=== PATIENT | female | born 1945 | race Caucasian/White ===

== ENCOUNTER 2017-03-20 02:39 | Observation (INO) | payer MEDICARE ==
[~2017-03-20] VITALS: Ht 160 cm; Wt 73.5 kg
[~2017-03-20 02:39] MED LIST: ACYC400T PO; AMLO2.5T PO; ASPI-1197 PO; BIOT10004 PO; CALC1CAP22 PO; CYAN100010 PO; ESOM40CA PO; FISH1CAP63 PO; FLUT16H NASAL; MULT-264 PO; SERT20OR6 PO; TRAM50TA4 PO
[2017-03-20 03:05] LABS: APPEARANCE,URINE Clear (CLEAR); BILIRUBIN,URINE Negative (NEGATIVE); COLOR,URINE Yellow (YELLOW); GLUCOSE, URINE (UA) Negative (NEGATIVE); KETONES,URINE Negative (NEGATIVE); LEUKOCYTE ESTERASE ,URINE Negative (NEGATIVE); NITRATE,URINE Negative (NEGATIVE); OCCULT BLOOD,URINE Small (NEGATIVE); PROTEIN,URINE Negative (NEGATIVE); UROBILINOGEN,URINE 0.2 mg/dL (0.2-1.0)
[2017-03-20 03:16] LABS: BASOPHILS % (AUTO) 0.3 % (0.0-5.0); EOSINOPHILS % (AUTO) 0.9 % (0.0-8.0); HEMATOCRIT 39.7 % (36-48); LYMPHOCYTES % (AUTO) 17.2 % (21.0-51.0); MEAN CORPUSCULAR HEMOGLOBIN 32.7 pg (27.0-33.0); MEAN CORPUSCULAR HGB CONC 35.1 g/dL (32.0-36.0); MEAN CORPUSCULAR VOLUME 93.1 fL (79-99); MONOCYTES % (AUTO) 6.6 % (3.0-13.0); NUCLEATED RED BLOOD CELLS 0.1 % (0.0-0.19); PLATELET COUNT (AUTO) 225 K/uL (130-400); RED BLOOD CELL COUNT(AUTO) 4.26 MIL/uL (4.00-5.50); RED CELL DISTRIBUTION WIDTH 13.4 % (11.0-15.5); WHITE BLOOD COUNT (AUTO) 6.7 K/uL (4.8-10.8)
[2017-03-20] MEDS ORDERED: SODIUM CHLORIDE 0.9% 1000ML 1,000 ML IV ONE ×2 (03:16→07:49)
[2017-03-20] MEDS ORDERED: ONDANSETRON HCL 4 MG/2 ML VIAL ONE ×2 (03:16→05:22)
[2017-03-20] MEDS ORDERED: HYDROMORPHONE 1 MG/1 ML AMP ONE (03:17)
[2017-03-20 03:18] LABS: BACTERIA,URINE None Seen /HPF (None Seen); WBC,URINE None Seen /HPF (0-1)
[2017-03-20 03:25] LABS: POTASSIUM 3.9 mmol/L (3.5-5.1)
[2017-03-20 03:26] LABS: INR 0.94 (0.85-1.15); PARTIAL THROMBOPLASTIN TIME 26.4 SEC (26.3-35.5); PROTHROMBIN TIME 9.9 SEC (9.6-11.6)
[2017-03-20 03:29] LABS: ALBUMIN 3.8 g/dL (3.5-5.0); BILIRUBIN,DIRECT 0.1 mg/dL (0.0-0.3); BILIRUBIN,TOTAL 0.2 mg/dL (0.2-1.0); TOTAL PROTEIN, SERUM 7.4 g/dL (6.0-8.3)
[2017-03-20] MEDS ORDERED: IOPAMIDOL-370 75 ML VIAL IV ONE (03:37)
[2017-03-20] MEDS ORDERED: CEFTRIAXONE SODIUM 1 GM ONE (05:22)
[2017-03-20] MEDS ORDERED: POTASSIUM CHLORIDE 10% ELIXIR 20 MEQ/15 ML UDCUP PO PRN (06:45)
[2017-03-20] MEDS ORDERED: POTASSIUM CHLORIDE 20 MEQ ERTAB PO PRN (06:45)
[2017-03-20] MEDS ORDERED: ONDANSETRON HCL 4 MG/2 ML VIAL IV PRN (06:45)
[2017-03-20] MEDS ORDERED: HYDRALAZINE HCL 20 MG/ML VIAL IV PRN (06:45)
[2017-03-20] MEDS: LEVOFLOXACIN 500 MG/D5W 100 ML 100 ML IV SCH (06:45)
[2017-03-20] MEDS ORDERED: SODIUM CHLORIDE 0.9% 1000ML 1,000 ML IV SCH (06:45)
[2017-03-20] MEDS ORDERED: POTASSIUM CHLORIDE 20MEQ/100ML 100 ML IV PRN (06:45)
[2017-03-20] MEDS: METRONIDAZOLE 500MG/100ML BAG 100 ML IV SCH ×3 (06:45→22:58)
[2017-03-20] MEDS ORDERED: LIDOCAINE HCL-MPF 1% 2ML VIAL IVP PRN (06:45)
[2017-03-20] MEDS ORDERED: MEPERIDINE-PF 25 MG/ML SYG ONE ×2 (07:27→10:58)
[2017-03-20] MEDS ORDERED: LEVOFLOXACIN 500 MG/D5W 100 ML 100 ML ONE (07:49)
[2017-03-20] MEDS ORDERED: METRONIDAZOLE 500MG/100ML BAG 100 ML ONE (07:49)
[2017-03-20] MEDS ORDERED: PANTOPRAZOLE SODIUM 40 MG TABLET.DR PO ONE (08:45)
[2017-03-20] MEDS ORDERED: PANTOPRAZOLE 40 MG/VIAL IVP SCH (09:00)
[2017-03-20 12:25] VITALS: BP 140/69
[2017-03-20] MEDS: MEPERIDINE-PF 25 MG/ML SYG IVP PRN ×2 (14:58→20:02)
[2017-03-20 16:12] VITALS: BP 129/69
[2017-03-20 19:50] VITALS: BP 115/63
[2017-03-20 23:10] VITALS: BP 137/84
[2017-03-20] MEDS ORDERED: ACETAMINOPHEN 325 MG TAB ONE (23:42)
[2017-03-21 03:20] VITALS: BP 139/73
[2017-03-21] MEDS: METRONIDAZOLE 500MG/100ML BAG 100 ML IV SCH ×2 (06:34→14:07)
[2017-03-21 07:40] VITALS: BP 144/78
[2017-03-21] MEDS: MEPERIDINE-PF 25 MG/ML SYG IVP PRN (08:05)
[2017-03-21] MEDS: ACETAMINOPHEN 325 MG TAB PO PRN ×2 (08:16→11:31)
[2017-03-21] MEDS ORDERED: PANTOPRAZOLE SODIUM 40 MG TABLET.DR PO SCH (09:00)
[2017-03-21] MEDS: LEVOFLOXACIN 500 MG/D5W 100 ML 100 ML IV SCH (10:09)
[2017-03-21] MEDS ORDERED: METR500T PO (10:45)
[2017-03-21 11:41] VITALS: BP 146/78
[2017-03-21 15:44] VITALS: BP 138/67
== END 2017-03-21 16:15 | disposition home or self-care (01) ==
LOC: EDH 02:39 → EDHIP 05:31 → WSH 12:32
PROVIDERS: ADMIT Family Medicine; ATTEND Family Medicine
DX: K57.92 Diverticulitis of intestine, part unspecified, without perforation or abscess without bleeding (principal); N28.1 Cyst of kidney, acquired; I10 Essential (primary) hypertension; Z90.49 Acquired absence of other specified parts of digestive tract
CPT/HCPCS: 36415; 74177; 80048; 80076; 81001; 82550; 83690; 84484; 85025; 85610; 85730; 93005; 96365; 96366 ×2; 96367; 96375; 96376 ×2; 99285; A4218; A4510; C9113; G0378 ×35; J0696; J1170; J1956 ×2; J2175 ×5; J2405 ×2; J3490 ×5; J7030 ×3; Q9967

== ENCOUNTER → 2018-01-07 | Outpatient (CLI) | payer OTHER ==
[~2018-01-07] MED LIST changes: -AMLO2.5T PO; +AMLO2.5T3 PO; +METR500T PO
== END | disposition home or self-care (01) ==
LOC: OIH 13:26
PROVIDERS: ATTEND Family Medicine
DX: Z13.6 Encounter for screening for cardiovascular disorders (principal)
CPT/HCPCS: 75571

== ENCOUNTER → 2022-02-17 | Outpatient (CLI) | payer MEDICARE ==
[~2022-02-17] MED LIST changes: -ACYC400T PO; +ACYC400T20 PO; -AMLO2.5T3 PO; +AMLO2.5T4 PO
[2022-02-17 12:32] LABS: BASOPHILS % (AUTO) 0.7 % (0.0-5.0); EOSINOPHILS % (AUTO) 2.5 % (0.0-8.0); HEMATOCRIT 38.2 % (36-48); LYMPHOCYTES % (AUTO) 18.4 % (21.0-51.0); MEAN CORPUSCULAR HEMOGLOBIN 27.4 pg (27.0-33.0); MEAN CORPUSCULAR HGB CONC 31.2 g/dL (32.0-36.0); MONOCYTES % (AUTO) 8.1 % (3.0-13.0); NEUTROPHILS % (AUTO) 70.1 % (40.0-77.0); PLATELET COUNT (AUTO) 319 K/uL (130-400); RED BLOOD CELL COUNT(AUTO) 4.34 MIL/uL (4.00-5.50); WHITE BLOOD COUNT (AUTO) 5.9 K/uL (4.8-10.8)
[2022-02-17 13:27] LABS: ALBUMIN 3.8 g/dL (3.5-5.0); CREATININE 1.1 mg/dL (0.5-1.5); POTASSIUM 4.7 mmol/L (3.5-5.1); TOTAL PROTEIN, SERUM 7.7 g/dL (6.0-8.3)
[2022-02-17 13:47] LABS: B-TYPE NATRIURETIC PEPTIDE 70 pg/mL (0-100)
== END | disposition home or self-care (01) ==
LOC: LAB 09:11
PROVIDERS: ATTEND Internal Medicine Cardiovascular Disease
DX: I10 Essential (primary) hypertension (principal); R06.00 Dyspnea, unspecified; R01.1 Cardiac murmur, unspecified
CPT/HCPCS: 36415; 80053; 80061; 83880; 85025

== ENCOUNTER → 2022-02-26 | Outpatient (CLI) | payer MEDICARE ==
[~2022-02-26] MED LIST changes: +IOHEXOL 350 MG/ML 100ML INFUS..BTL IV ONE; +METOPROLOL TARTRATE 1 MG/ML 5ML VIAL IV ONE
== END | disposition home or self-care (01) ==
LOC: RAH 10:09
PROVIDERS: ATTEND Internal Medicine Cardiovascular Disease
DX: J44.9 Chronic obstructive pulmonary disease, unspecified (principal); I70.0 Atherosclerosis of aorta; R06.00 Dyspnea, unspecified
CPT/HCPCS: 75574; J3490; Q9967